=== PATIENT | male | born 1990 | race Caucasian/White ===

== ENCOUNTER 2019-04-13 17:22 | Inpatient (IN) | payer OTHER ==
[~2019-04-13] VITALS: Ht 177.8 cm; Wt 99.6 kg
--- NOTE | 2019-04-13 17:53 | NUR ---
PT TO ED FOR LEFT UPPER ARM ABSCESS. PT STATES HE MISSED WHILE INJECTING HEROIN APPROX 10 DAYS AGO. ABSCESS GOT WORSE APPROX 7 DAYS ABO. PT STATES HE UNSUCCESSFULLY TRIED TO DRAIN IT BY LANCING WITH LARGE NEEDLE YESTERDAY. PT STATES POSSIBLE FEVER FOR PAST 3 DAYS, BUT DENIES N/V/D. PT CONNECTED TO MONITORS. VSS. AWAITING EDMD ASSESSMENT AND ORDERS.
[2019-04-13] MEDS ORDERED: VANCOMYCIN 2,000 MG in SODIUM CHLORIDE 0.9% 500 ML IV ONE (18:30)
[2019-04-13] MEDS ORDERED: PIPERACILLIN/TAZO/PMX 3.375GM 50 ML IVPB ONE (18:30)
[2019-04-13] MEDS ORDERED: VANCOMYCIN PER PHARMACY MC ONE (18:30)
[2019-04-13 19:11] LABS: BASOPHILS % (AUTO) 0 % (0-1); EOSINOPHILS # (AUTO) 0.05 x10^3/uL (0-0.4); EOSINOPHILS % (AUTO) 0 % (1-7); LYMPHOCYTES # (AUTO) 0.72 x10^3/uL (1-3.4); LYMPHOCYTES % (AUTO) 6 % (22-44); MD NO; MEAN CORPUSCULAR HEMOGLOBIN 29.4 pg (27.5-34.5); MEAN CORPUSCULAR HGB CONC 33.8 g/dL (33.2-36.2); MEAN CORPUSCULAR VOLUME 86.8 fL (81-97); MEAN PLATELET VOLUME 7.2 fL (7.4-10.4); MONOCYTES # (AUTO) 0.75 x10^3/uL (0.2-0.8); MONOCYTES % (AUTO) 6 % (2-9); NEUTROPHILS # (AUTO) 10.22 x10^3/uL (1.8-6.8); NEUTROPHILS % (AUTO) 87 % (42-75); PLATELET COUNT 263 x10^3/uL (130-400); RED BLOOD COUNT 4.34 x10^6/uL (4.38-5.82); RED CELL DISTRIBUTION WIDTH 13.4 % (9.4-14.8)
[2019-04-13 19:16] LABS: ALANINE AMINOTRANSFERASE 19 U/L (12-78); ALBUMIN 3.3 g/dL (3.4-5.0); ANION GAP 5 mmol/L (5-15); CHLORIDE 98 mmol/L (98-107)
[2019-04-13 19:18] LABS: ALKALINE PHOSPHATASE 102 U/L (45-117); BILIRUBIN,TOTAL 0.6 mg/dL (0.2-1.0); TOTAL PROTEIN 7.7 g/dL (6.4-8.2)
--- NOTE | 2019-04-13 19:27 | NUR ---
PT RESTING IN ROOM WITH MOTHER AT BS. VSS. IV ESTABLISHED. LABS AND BC X2 DRAWN. IV ABX STARTED AFTER BC COLLECTION. NO NEEDS EXPRESSED. CALL LIGHT WITHIN REACH. AWAITNG ROOM ASSIGNMENT.
[2019-04-13] MEDS ORDERED: PIPERACILLIN/TAZO/PMX 3.375GM 50 ML ONE (19:28)
--- NOTE | 2019-04-13 20:19 | NUR ---
PT RESTING IN ROOM WITH MOTHER AT BS. VSS. PT PROVIDED CRACKERS AND DRINKS PER REQUEST. NO OTEHR NEEDS EXPRESSED. CALL LIGHT WITHIN REACH. AWAITNG ROOM ASSIGNMENT.
[2019-04-13] MEDS ORDERED: ACETAMINOPHEN 325 MG TABLET PO PRN (21:00)
[2019-04-13] MEDS ORDERED: VANCOMYCIN PER PHARMACY MC PRN (21:00)
[2019-04-13] MEDS ORDERED: ZOSYN PER PHARMACY MC PRN (21:00)
[2019-04-13] MEDS ORDERED: ONDANSETRON 2MG/ML, 2ML IVPush PRN (21:00)
[2019-04-13] MEDS ORDERED: POTASSIUM CHLORIDE 20 MEQ TAB.ER.PRT PO ONE (21:00)
[2019-04-13] MEDS ORDERED: NICOTINE 21 MG/24 HR PATCH.TD24 TD SCH (21:00)
[2019-04-13] MEDS ORDERED: ENOXAPARIN 40 MG/0.4 ML SQ SCH (22:00)
[2019-04-13] MEDS: KETOROLAC 30 MG/1 ML IV PRN (22:25)
[2019-04-13 22:29] VITALS: BP 130/81
[2019-04-13] MEDS ORDERED: PHARMACOKINETIC MONITORING MC PRN (22:30)
[2019-04-13] MEDS: POTASSIUM CHLORIDE 20 MEQ in LACTATED RINGERS 1,000 ML IV SCH (22:39)
[2019-04-14] MEDS: PIPERACILLIN/TAZO/PMX 3.375GM 50 ML IV SCH ×3 (01:28→14:31)
[2019-04-14 01:45] VITALS: BP 149/76
[2019-04-14 04:33] LABS: AMPHETAMINE SCREEN, URINE Positive (Negative); BARBITURATE SCREEN, URINE Negative (Negative); BENZODIAZEPINE SCREEN, URINE Negative (Negative); CANNABINOID SCREEN, URINE Negative (Negative); COCAINE SCREEN, URINE Negative (Negative); METHADONE SCREEN, URINE Negative (Negative); OPIATE SCREEN, URINE Positive (Negative)
[2019-04-14] MEDS ORDERED: morphine SULFATE 10 MG/ML, 1ML IVPush ONE ×2 (05:00→05:30)
[2019-04-14 07:21] VITALS: BP 129/76
[2019-04-14] MEDS ORDERED: VANCOMYCIN 1,700 MG in SODIUM CHLORIDE 0.9% 250 ML IV SCH (08:00)
[2019-04-14] MEDS: KETOROLAC 30 MG/1 ML IV PRN (08:44)
[2019-04-14] MEDS ORDERED: SENNA/DOCUSATE TABLET PO SCH (09:00)
[2019-04-14] MEDS ORDERED: HYDROcodone/APAP 5/325 TABLET PO PRN (10:30)
[2019-04-14] MEDS: POTASSIUM CHLORIDE 20 MEQ in LACTATED RINGERS 1,000 ML IV SCH (11:10)
[2019-04-14 12:23] VITALS: BP 116/62
== END 2019-04-14 15:28 | disposition left against medical advice (07) | DRG 603 ==
LOC: ED 19:02 → EDIP 20:15 → 3NE 21:32
PROVIDERS: ADMIT Family Medicine; ATTEND Family Medicine
DX: L03.114 Cellulitis of left upper limb (principal); L02.416 Cutaneous abscess of left lower limb; D64.9 Anemia, unspecified; E87.6 Hypokalemia; Z53.21 Procedure and treatment not carried out due to patient leaving prior to being seen by health care provider; F11.10 Opioid abuse, uncomplicated; F17.210 Nicotine dependence, cigarettes, uncomplicated; Z63.8 Other specified problems related to primary support group
CPT/HCPCS: 36415; 80053; 80074; 80307; 82728; 83540; 83550; 83605; 84145; 84466; 85025; 87040; 87070; 87205; 87521; 87806; 96374; 96375; 99285; G0378; J1885; J2543; J3370; J3480; G0475; J2270; J7040; J7050; J7120

== ENCOUNTER 2019-04-17 02:19 | Emergency (ER) | payer SELFPAY ==
[~2019-04-17] VITALS: Ht 180.3 cm; Wt 100.0 kg
[2019-04-17 02:35] VITALS: BP 137/80
--- NOTE | 2019-04-17 02:36 | NUR ---
first contact with pt. Pt was admitted to [facility] for left arm abscess 2 days ago, was receiving IV ABX and left AMA. Pt states abscess "opened up" and he started pushing the pus out this evening. pt's aox4. resps even and unlabored. bp/spo2 monitors in place. call light within reach.
[2019-04-17] MEDS ORDERED: CEFTRIAXONE 1,000 MG ONE (02:48)
--- NOTE | 2019-04-17 02:55 | NUR ---
PT MEDICATED PER EMAR. PT TOLERATED WELL.
[2019-04-17] MEDS ORDERED: CEFTRIAXONE 1,000 MG IM ONE (03:00)
== END 2019-04-17 03:19 | disposition left against medical advice (07) ==
LOC: ED 02:38
DX: L03.114 Cellulitis of left upper limb (principal); L02.414 Cutaneous abscess of left upper limb
CPT/HCPCS: 96372; 99283; J0696